=== PATIENT | female | born 1995 | race Caucasian/White ===

== ENCOUNTER 2017-05-15 09:00 | Inpatient (IN) | payer OTHER ==
[2017-05-15 09:47] LABS: PLATELET COUNT 261 10^3/uL (150-400)
--- NOTE | 2017-05-15 10:01 | CPEKG ---
Heart Rate: 77 RR Interval: 779 P-R Interval: 152 QRSD Interval: 80 QT Interval: 404 QTC Interval: 458 P Ho Ho Kus: 11 QRS Ho Ho Kus: -8 T Wave Ho Ho Kus: 15 EKG Severity - BORDERLINE ECG - EKG Impression: SINUS RHYTHM EKG Impression: LOW VOLTAGE THROUGHOUT Electronically Signed By: Juancho Alvarenga 15-May-2017 15:20:21
--- NOTE | 2017-05-15 10:03 | EDPHY ---
H & P Smoking Status: Current every day smoker Time Seen by Provider: 05/15/17 09:14 HPI/ROS: CHIEF COMPLAINT: Drug overdose HISTORY OF PRESENT ILLNESS: 22-year-old female presents to the emergency department after intentional drug overdose. Mother thinks that she took the medication around 7:00 a.m.. She admits to taking Escitalopram 10 mg up to 30 tablets and buspirone 10 mg possibly up to 60 tablets. The patient states that she just came back from [place] yesterday and broke up with her boyfriend. She feels suicidal. She continues to feel suicidal. She denies any other medications. She is prescribed Lyrica for her fibromyalgia. Last dose was yesterday. She denies chest pain or difficulty breathing. Denies abdominal pain. She does feel slightly nauseous although no vomiting. Denies auditory or visual hallucinations. She does have a known history of depression and bipolar and has been hospitalized for previous suicide attempts in the past. Denies history of substance abuse including alcohol. REVIEW OF SYSTEMS: Constitutional: No fever, no chills. Eyes: No double or blurry vision. ENT: No sore throat. Respiratory: No cough, no shortness of breath. Cardiac: No chest pain. Gastrointestinal: No abdominal pain, vomiting or diarrhea. Genitourinary: No dysuria. Musculoskeletal: No neck or back pain. Skin: No rashes. Neurological: No headache. (Maranda Joshi) Past Medical/Surgical History: Depression, bipolar, previous suicide attempts (Maranda Joshi M) Social History: Lives in [place] (Maranda Joshi M) Physical Exam: General Appearance: Lethargic, no distress. Eyes: Pupils equal and round. Extraocular motions are all intact. ENT: Mouth: Mucous membranes moist. Horizontal nystagmus noted bilaterally. Respiratory: No wheezing, rhonchi, or rales, lungs are clear to auscultation. Cardiovascular: Regular rate and rhythm. Gastrointestinal: Abdomen is soft and nontender, no masses, no rebound or guarding, bowel sounds normal. Neurological: Alert and oriented x 3, cranial nerves II through XII grossly intact Skin: Warm and dry, no rashes. Musculoskeletal: Nontender to palpate along the cervical, thoracic or lumbar spine. Neck is supple. Extremities: Full range of motion and no peripheral edema. Psychiatric: Patient is oriented X 3, there is no agitation. (Maranda Joshi) Constitutional: Initial Vital Signs Temperature (C) 36.3 C 05/15/17 09:07 Heart Rate 98 05/15/17 09:07 Respiratory Rate 16 05/15/17 09:07 Blood Pressure 112/90 H 05/15/17 09:07 O2 Sat (%) 95 05/15/17 09:07 O2 Delivery Mode Room Air Allergies/Adverse Reactions: acetaminophen [From Percocet] Allergy (Intermediate, Verified 05/15/17 18:16) Hives metronidazole Allergy (Intermediate, Verified 05/15/17 18:16) Vomiting oxycodone [From Percocet] Allergy (Intermediate, Verified 05/15/17 18:16) Hives Home Medications: Medication Instructions Recorded Ascorbate Calcium/Bioflavonoid 1 each PO DAILY 05/15/17 [Kelley-C 500 mg Tablet] Cholecalciferol Vit D3 [Vitamin D3 2,000 units PO DAILY 05/15/17 2000 units tab (OTC)] Cyanocobalamin/Folic AC/Vit B6 [B 1 each PO DAILY 05/15/17 Complex-Folic Acid Tablet] Escitalopram Oxalate [Lexapro] 10 mg PO DAILY 05/15/17 Herbals/Supplements -Info Only 1 ea PO DAILY 05/15/17 Metoclopramide Dose Unknown PO TID 05/15/17 Pregabalin [Lyrica 150mg (*)] 150 mg PO HS 05/15/17 Pregabalin [Lyrica 150mg (*)] 300 mg PO DAILY 05/15/17 lamoTRIgine [LamICTAL 100 MG (*)] 100 mg PO DAILY 05/15/17 Medical Decision Making - Diagnostics EKG Interpretation: EKG interpreted by me shows normal sinus rhythm with normal interval and axis. QRS is normal there is no significant ST elevation or depression. There is no arrhythmia. The rate is 77 (Juancho Alvarenga) ED Course/Re-evaluation: I did not see this patient while she was in the emergency department. However her care was discussed with PA while the patient was in the department. I agree with treatment plan and management (Juancho Alvarenga) I took over care of this patient at 5:00 p.m.. 7:00 p.m., the patient has been seen and evaluated by Behavioral Health. The patient will be admitted to [address] [place] [address] under the care of Dr. Moses. I have filled out the appropriate transfer paperwork. The patient's remaining emergency department course under my care has been uneventful. She was transferred in stable condition. (Ozzy Bruno) I spoke with [employer], case #[id number], and they recommended monitoring the patient for 6-8 hours. The patient was placed on a quality project manager. EKG was performed. The case was discussed with Dr. Juancho Alvarenga, secondary supervising physician, who did not directly evaluate the patient but agrees with treatment and plan. Care will be turned over to Dr. Ozzy Bruno at 6:00 p.m.. (Maranda Joshi) Differential Diagnosis: Depression including functional and major depression, situational depression, medication side effect, drugs and alcohol abuse. (Maranda Joshi) - Data Points Laboratory Results: Laboratory Results 05/15/17 09:40 05/15/17 09:40 Medications Given: Cholecalciferol (Vitamin D) 2,000 units PO DAILY BRIGID Stop: 11/12/17 08:59 Last Admin: 05/16/17 10:31 Dose: 2,000 units Cyproheptadine HCl (Periactin) 4 mg PO TID PRN PRN Reason: Anxiety or Nausea Stop: 11/12/17 15:59 Last Admin: 05/16/17 14:06 Dose: 4 mg Lamotrigine (Lamictal) 100 mg PO DAILY BRIGID Stop: 11/12/17 08:59 Last Admin: 05/16/17 10:31 Dose: 100 mg Miscellaneous Medication (Cyanocobalamin/Folic Ac/Vit B6 [B Complex-Folic Acid Tablet]) 1 each PO DAILY BRIGID Stop: 11/12/17 08:59 Last Admin: 05/16/17 10:40 Dose: Not Given Nicotine Polacrilex (Nicorette) 2 mg B Q1HR PRN PRN Reason: Nicotine withdrawal Stop: 11/11/17 19:59 Last Admin: 05/16/17 14:06 Dose: 2 mg Pregabalin (Lyrica) 150 mg PO HS BRIGID Stop: 11/11/17 20:59 Last Admin: 05/15/17 20:59 Dose: 150 mg Pregabalin (Lyrica) 300 mg PO DAILY BRIGID Stop: 11/12/17 08:59 Last Admin: 05/16/17 10:28 Dose: 300 mg Discontinued Medications Influenza Virus Vaccine Quadrival (Fluarix Quad [id number]) 0.5 ml IM .ONCE ONE Stop: 05/16/17 14:46 Last Admin: 05/16/17 14:51 Dose: 0.5 ml Lorazepam (Ativan) 0.5 - 1 mg PO Q6HRS PRN PRN Reason: Anxiety, Able to Take PO Stop: 11/11/17 19:59 Last Admin: 05/16/17 10:44 Dose: 0.5 mg Pneumococcal Polyvalent Vaccine (Pneumovax 23) 0.5 ml IM .ONCE ONE Stop: 05/16/17 14:44 Last Admin: 05/16/17 14:55 Dose: 0.5 ml Departure - Departure Disposition: [facility] IP Clinical Impression: Suicidal ideation Overdose Qualifiers: Encounter type: initial encounter Injury intent: intentional self-harm Qualified Code(s): T50.902A - Poisoning by unspecified drugs, medicaments and biological substances, intentional self-harm, initial encounter Condition: Good
[2017-05-15] MEDS ORDERED: LORazepam 0.5 MG TAB PO PRN (20:00)
[2017-05-15] MEDS ORDERED: MAGNESIUM HYDROXIDE 30 ML UDCUP PO PRN (20:00)
[2017-05-15] MEDS ORDERED: MAG HYDROX/AL HYDROX/SIMETH 30 ML UDCUP PO PRN (20:00)
[2017-05-15] MEDS ORDERED: IBUPROFEN 200 MG TAB PO PRN (20:01)
[2017-05-15] MEDS ORDERED: MELATONIN 3 MG TAB PO PRN (20:09)
[2017-05-15] MEDS: PREGABALIN 75 MG CAP PO SCH (20:59)
[2017-05-16] MEDS: PREGABALIN 75 MG CAP PO SCH ×2 (10:28→21:10)
[2017-05-16] MEDS: lamoTRIgine 100 MG TAB PO SCH (10:31)
[2017-05-16] MEDS: CHOLECALCIFEROL VIT D3 2,000 UNITS TAB/CAP PO SCH (10:31)
[2017-05-16] MEDS: FOLIC AC PO SCH (10:40)
[2017-05-16] MEDS: [UNRECOGNIZED DRUG - OTHER] PO SCH (10:40)
[2017-05-16] MEDS: VIT B6 PO SCH (10:40)
[2017-05-16] MEDS: CYANOCOBALAMIN PO SCH (10:40)
[2017-05-16] MEDS: NICOTINE POLACRILEX 2 MG GUM B PRN ×3 (12:57→17:57)
[2017-05-16] MEDS ORDERED: LORazepam 0.5 MG TAB PO PRN (13:40)
[2017-05-16] MEDS: CYPROHEPTADINE HCL 4 MG TAB PO PRN (14:06)
[2017-05-16] MEDS ORDERED: PNEUMOCOCCAL 0.5ML VACCINE VIAL IM ONE (14:43)
[2017-05-16] MEDS ORDERED: FLU VACC QS 2017-18 (3YR+)/PF 0.5 ML SYR (FLUARIX QUAD) IM ONE (14:45)
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
[2017-05-16] MEDS ORDERED: SODIUM CL NASAL 45 ML BTL EACHNARE PRN (17:16)
[2017-05-16] MEDS: FLUTICASONE NASAL 120 SPRAYS/16 GM MDI EACHNARE SCH (19:01)
[2017-05-16] MEDS: CEPACOL LOZENGE PO PRN (19:24)
--- NOTE | 2017-05-17 00:38 | BCON ---
[f rep st] CONSULTATION Corrected report CONSULTATION FOR MEDICAL EVALUATION DATE OF CONSULTATION: 05/15/2017 REASON FOR CONSULT: Medical evaluation for inpatient psychiatric unit. HISTORY OF PRESENT ILLNESS: The patient is a 22-year-old female who was admitted to the inpatient psychiatric unit yesterday after an intentional overdose of antidepressants. She denies any recent fever, vomiting, diarrhea. She has had mild cough, congestion, and postnasal drip for a few days and feels like it is getting worse. She denies taking any jmyh-xju-woweshl cold or cough medications. She does take several supplements regularly. She denies any shortness of breath, chest pain, vomiting, or diarrhea. Denies history of asthma. PAST MEDICAL HISTORY: Depression, endometriosis, tobacco use, fibromyalgia (Dr Sandra Yan in [place] prescribes Lyrica). Primary care provider, Dr. Shantanu Nichols, at [place]. PAST SURGICAL HISTORY: Hysterectomy in September of 2016 for endometriosis in [place] and patient reports that ovaries were not removed at the time of surgery. SOCIAL HISTORY: She lives in [place] with roommates. Her family lives in [place]. She smokes 4-5 cigarettes a day but has been using Nicorette gum since arrival, which she says is helpful. She denies any alcohol or drug use. FAMILY HISTORY: Depression and alcoholism on dad's side of the family. Maternal grandfather with prostate cancer. Maternal grandmother of an acute heart attack. MEDICATIONS: Please see reconciled medications in [employer], also regularly takes egnd-ayh-dikaiit B complex, [place], Kelley C, and D3 supplements. REVIEW OF SYSTEMS: Nonpsychiatric review of systems was completed and negative , except as noted above. OBJECTIVE: VITAL SIGNS: Temperature is 97.8, blood pressure 104/68, heart rate 89, respiratory rate of 14. She is 94% on room air. GENERAL: She is pleasant female with a flat affect. HEENT: Dilated pupils noted. EOMI. Conjunctivae anicteric with no hyperemia. Oral cavity and pharynx with posterior cobblestoning. No exudate. No lesions. Moist mucous membranes. Nares have clear rhinorrhea bilaterally. Sinuses are mildly tender to palpation, maxillary and frontal. NECK: Supple with shotty anterior cervical lymphadenopathy noted on the left greater than right. CARDIOVASCULAR: Regular rate and rhythm without murmur. LUNGS: Clear to auscultation bilaterally. No cough noted. ABDOMEN: Soft, normoactive bowel sounds, nontender, nondistended. No masses appreciated. SKIN: Warm and dry. No visible rashes were noted. : Deferred. BREASTS: Deferred. NEURO: non focal PSYCH: Flat affect. Fluent speech. Appropriate responses. LABS: White blood cell count 7.0, hemoglobin 15.5, hematocrit 44.9, platelet count of 261, normal differential. Sodium was 143, potassium 3.7, chloride 108 , carbon dioxide is 21, BUN of 8, creatinine 0.7, glucose of 77. Hemoglobin A1c was 5.1. Normal liver function tests. TSH 1.87. Urine toxicology shows no salicylates or Tylenol. Negative urine drug screen. Alcohol less than 10. ASSESSMENT: 1. Suicide attempt, depression. Will continue inpatient psychiatric care per psychiatric team. 2. History of endometriosis. Reports good resolution of her symptoms after hysterectomy. 3. Tobacco use. For now, will continue with gum, as she declines patches because of a reaction to the adhesives previously. Strongly encouraged complete cessation. 4. Upper respiratory infection. Does have mild acute sinusitis signs on exam today. Will start nasal saline and nasal steroid. I have ordered Cepacol as needed for throat pain. Should push fluids and can take ibuprofen as needed. If her symptoms are not gradually improving within the next several days, antibiotics might be appropriate at that time. Thank you for the opportunity to assist in her care. Please contact hospitalist service if future medical questions or concerns. /[id number]/MODL Arianna worktype, 05/20/17, rafael ZIEGLER
[2017-05-17] MEDS: [UNRECOGNIZED DRUG - OTHER] PO SCH (07:56)
[2017-05-17] MEDS: CYANOCOBALAMIN PO SCH (07:56)
[2017-05-17] MEDS: FOLIC AC PO SCH (07:56)
[2017-05-17] MEDS: VIT B6 PO SCH (07:56)
[2017-05-17] MEDS: PREGABALIN 75 MG CAP PO SCH ×2 (08:29→20:36)
[2017-05-17] MEDS: MULTIVITAMINS 1 EACH TAB PO SCH (08:29)
[2017-05-17] MEDS: CHOLECALCIFEROL VIT D3 2,000 UNITS TAB/CAP PO SCH (08:29)
[2017-05-17] MEDS: lamoTRIgine 100 MG TAB PO SCH (08:30)
[2017-05-17] MEDS: FLUTICASONE NASAL 120 SPRAYS/16 GM MDI EACHNARE SCH (08:30)
[2017-05-17] MEDS: NICOTINE POLACRILEX 2 MG GUM B PRN (08:46)
[2017-05-17] MEDS: NICOTINE 14 MG/24 HR PATCH TD SCH (12:17)
[2017-05-17] MEDS: CEPACOL LOZENGE PO PRN (12:17)
[2017-05-17] MEDS: OLANZapine DISINTEGR 5 MG TAB PO PRN (12:57)
[2017-05-17] MEDS ORDERED: NAPROXEN SODIUM 220 MG TAB PO PRN (12:58)
--- NOTE | 2017-05-17 14:03 | SOAPPROG ---
SOAP Progress Note Assessment/Plan: Assessment: Bipolar II, depressed with mixed features PTSD Borderline PD History of alcohol use disorder Serotonin Syndrome symptoms - recent overdose of buspirone and escitalopram Fibromyalgia Patient appears dysphoric and reports continued SI and hopelessness. Patient has racing thoughts and anxiety; has dilated pupils, mild tremor, nausea , fatigue. Plan: Short Term Certification - patient had erratic and impulsive behavior prior to admit Increase Lamictal 100mg QAM and 25mg QHS for bipolar depression. Discussed risk of Wood-Gilmer Syndrome Restart Prazosin 1mg QHS for PTSD Continue Olanzapine 5mg PRN racing thoughts Continue Cyproheptadine 4mg PRN anxiety or nausea Reduce Lyrica 150mg BID for fibromyalgia, due to excessive sleep Naproxen 440mg BID PRN arthritis Monitor mood, risk of self-harm Patient signed SHAD to obtain discharge summary from [facility] 2015 and [facility]. 05/17/17 14:15 Subjective: CC: "depressed, tired" Patient reports yesterday having mood instability with episodic hopelessness and thoughts of suicide, later anxiety and racing thoughts improved with PRN Olanzapine and PRN Ativan. Reports sleeping excessively 10-12 hours most of past month. Reports nightmares 2-3 nights a week. Reports continuing to feel hopeless and suicidal this afternoon. Reports in December 2015 vising female friend Pedro in [place]; Pedro committed suicide by gun shot wound in a van during the visit. Reports funding Pedro in the van and later having nightmares and flashbacks. In late 2015 close friend Moris of a fentanyl overdose. Reports feeling overwhelmed by those losses as well as losing her grandparents during childhood. Reports no reason to live. Reports racing thoughts most of past month. Reports feeling nausea and mildly confused with mild tremors. Reports benefit from Naproxen for arthritis. Objective: Vital Signs Temp Pulse Resp BP Pulse Ox 36.6 C 90 14 105/59 L 96 05/17/17 06:00 05/17/17 06:00 05/17/17 06:00 05/17/17 06:00 05/17/17 06:00 Spoke to mother Ivett Rascon [phone]. She verify patients history of trauma/loss. Patient has weeks of low energy and low activity, then intense mood swings with erratic behavior, including excessive spending and rapid speech. No history of grandiose delusions or violence toward others or reckless disregard for the safety of others. Reports patient has in past month had severe mood swings with unstable report of symptoms and 'up and down' behavior. Reports reports she can support patient, provide assistance in medication monitoring, and assist patient in attending follow up appointments. She is assisting and caring for patients pets. Patients biological father is diagnosed with Bipolar Disorder, but neither mother or patient are in contact with him. Patient is a very tired appearing WF with dilated pupils, pale, mildly sweaty with tremors tremor, mild ataxia. Speech soft few words. Mood 'depressed' affect dysphoric, restricted. Recurrent thoughts that live is not worth living and wanting to kill herself. Denies plan to harm self on unit. Thoughts briefly organized with poverty of detail. Denies HI or AH. No evident delusions. Insight limited. Judgment questionable. - Time Spent With Patient Time Spent With Patient: 30 minutes - Pending Discharge Pending Discharge Within 24 Hours: No Pending Discharge Within 48 Hours: No ICD10 Worksheet Patient Problems: Problems Problem Status Onset Fibromyalgia Acute Posttraumatic stress disorder Acute Borderline personality disorder Acute Bipolar 2 disorder Acute Overdose Acute Suicidal ideation Acute
[2017-05-17] MEDS: lamoTRIgine 25 MG TAB PO SCH (20:36)
[2017-05-17] MEDS ORDERED: PRAZOSIN HCL 1 MG CAP PO SCH (21:00)
[2017-05-18] MEDS: PREGABALIN 75 MG CAP PO SCH ×3 (08:15→19:56)
[2017-05-18] MEDS: CYPROHEPTADINE HCL 4 MG TAB PO PRN (08:15)
[2017-05-18] MEDS: MULTIVITAMINS 1 EACH TAB PO SCH (08:16)
[2017-05-18] MEDS: CHOLECALCIFEROL VIT D3 2,000 UNITS TAB/CAP PO SCH (08:16)
[2017-05-18] MEDS: NICOTINE 14 MG/24 HR PATCH TD SCH (08:16)
[2017-05-18] MEDS: OLANZapine DISINTEGR 5 MG TAB PO PRN (08:16)
[2017-05-18] MEDS: lamoTRIgine 100 MG TAB PO SCH (08:16)
[2017-05-18] MEDS: FLUTICASONE NASAL 120 SPRAYS/16 GM MDI EACHNARE SCH (08:16)
--- NOTE | 2017-05-18 09:08 | SOAPPROG ---
SOAP Progress Note Assessment/Plan: Assessment: Bipolar II, depressed with mixed features PTSD Borderline PD History of alcohol use disorder Serotonin Syndrome symptoms - recent overdose of buspirone and escitalopram Fibromyalgia Patient appears dysphoric and reports continued SI and hopelessness. Patient describes mixed hypomanic and depressive symptoms prior to admit and Borderline PD symptoms since age 15. Patient has racing thoughts and anxiety; has dilated pupils, mild twitching, fatigue. Plan: Short Term Certification due to recent impulsive behavior and impulsive severe overdose Continue Lamictal 100mg QAM and 25mg QHS for bipolar depression. Discussed risk of Wood-Gilmer Syndrome Discontinue Prazosin due to hypotension this AM Schedule Olanzapine 2.5mg BID for mixed episode Continue Cyproheptadine 4mg PRN anxiety or insomnia Continue Lyrica 150mg BID and Naproxen 440mg BID PRN fibromyalgia arthritis Monitor mood, risk of self-harm Education about PTSD, bipolar disorder, Borderline PD CBT - identifying strengths, supports, coping skills, positive thoughts about self/future Check AM CK and BMP 05/18/17 09:12 Subjective: CC: "Depressed" Patient reports yesterday having racing thoughts, agitation, severe anxiety, took PRN Zydis 5mg and slept 3 hours then felt better. Feels tired this AM. Had nightmares overnight. Reports feeling hopeless, that she cannot succeed with school or career, and having suicidal thoughts. Reports goal is to feel better to have a good relationship with mother, step-father, friends, and pets ( dog, cat, snake, lizard) and either go to school or get a job. Reports feeling overwhelmed, anxious, and having racing thoughts this AM. Reports prior to admit having severe mood instability - going 1-3 days with elevated mood, activity, and energy alternating with depressed mood and hypersomnia. Reports when having elevated mood/energy/activity 'it is like severe adrenaline, I'm frantic and can't calm down and get more upset easily. Reviewed Borderline PD, Bipolar DO, and PTSD handouts and endorses numerous symptoms of all three disorders. Objective: Vital Signs Temp Pulse Resp BP Pulse Ox 36.6 C 69 16 92/50 L 95 05/18/17 06:00 05/18/17 06:00 05/18/17 06:00 05/18/17 06:00 05/18/17 06:00 Tired WF. Occasional AIM/twitching. Pupils dilated but less than yesterday. Speech soft few words. Mood 'depressed' affect restricted, sad, anxious. Thoughts organized with minimal detail. Reports intense and frequent suicidal thoughts. Denies AH or paranoia or VH. Reports racing thoughts and anxiety. Insight limited. Judgment impaired. Staff report patient slept 3 hours after PRN Zyprexa 5mg yesterday but reporting reduced anxiety and racing thoughts. Slept 9 hours overnight. Appearing sad, withdrawn, tired on unit with continued suicidal ideation. - Time Spent With Patient Time Spent With Patient: 25 minutes - Pending Discharge Pending Discharge Within 24 Hours: No Pending Discharge Within 48 Hours: No ICD10 Worksheet Patient Problems: Problems Problem Status Onset Bipolar 2 disorder Acute Borderline personality disorder Acute Fibromyalgia Acute Overdose Acute Posttraumatic stress disorder Acute Suicidal ideation Acute
[2017-05-18] MEDS: OLANZapine 2.5 MG TAB PO SCH ×3 (10:55→19:54)
[2017-05-18] MEDS: NICOTINE POLACRILEX 2 MG GUM B PRN (11:50)
[2017-05-18] MEDS: B COMPLEX PO SCH (12:17)
[2017-05-18] MEDS: lamoTRIgine 25 MG TAB PO SCH (19:55)
[2017-05-19] MEDS: B COMPLEX PO SCH (08:17)
[2017-05-19] MEDS: NICOTINE 14 MG/24 HR PATCH TD SCH (08:17)
[2017-05-19] MEDS: MULTIVITAMINS 1 EACH TAB PO SCH (08:17)
[2017-05-19] MEDS: OLANZapine 2.5 MG TAB PO SCH ×2 (08:17→19:37)
[2017-05-19] MEDS: lamoTRIgine 100 MG TAB PO SCH (08:17)
[2017-05-19] MEDS: PREGABALIN 75 MG CAP PO SCH ×2 (08:17→19:37)
[2017-05-19] MEDS: FLUTICASONE NASAL 120 SPRAYS/16 GM MDI EACHNARE SCH (08:19)
[2017-05-19] MEDS: CHOLECALCIFEROL VIT D3 2,000 UNITS TAB/CAP PO SCH (08:21)
[2017-05-19 10:30] LABS: CREATINE KINASE 36 IU/L (0-156)
[2017-05-19] MEDS: NICOTINE POLACRILEX 2 MG GUM B PRN (12:45)
[2017-05-19] MEDS ORDERED: MAGNESIUM CITRATE 300 ML BOTTLE PO ONE (12:46)
--- NOTE | 2017-05-19 12:52 | SOAPPROG ---
SOAP Progress Note Assessment/Plan: Assessment: Bipolar II, depressed with mixed features PTSD Borderline PD History of alcohol use disorder Recent overdose of buspirone and escitalopram Fibromyalgia Patient appears more alert and more hopeful today with reduced racing thoughts and reduced anxiety. Patient has reduced serotonin syndrome symptoms but occasional muscle twitching. Patient reports continued suicidal thoughts (denies intent/plan) and is unable to identify any coping skills. Patient just started attending groups today. Plan: Short Term Certification due to recent impulsive behavior and impulsive severe overdose Continue Lamictal 100mg QAM and 25mg QHS for bipolar depression. Continue Olanzapine 2.5mg BID for mixed episode Continue Cyproheptadine 4mg PRN anxiety or insomnia Continue Lyrica 150mg BID and Naproxen 440mg BID PRN fibromyalgia arthritis Monitor mood, risk of self-harm, coping skills Education about PTSD, bipolar disorder, Borderline PD CBT - identifying strengths, supports, coping skills, positive thoughts about self/future Encouraged patient to attend groups and begin safety planning 05/19/17 12:52 Subjective: CC: "Better" Patient reports feeling 'better.' Unable to explain in what way, later reports feeling less tired and less 'groggy.' Reports goal is to feel better to attend IOP after discharge while living with mother. Reports intermediate goal of either working or going to school in [place] near her [employer] friends. Reports she is not confident in herself and fears that she will harm herself again but wants to feel better. Reports feeling significantly improved this AM and denies racing thoughts and reports reduction in agitation and anxiety. Reports taking 4 Ex-Lax tablets daily prior to admission. Reports no BM since Sunday 05/14, did take MOM this AM without benefit. Unable to explain coping skills to use if having thoughts of self-harm except 'take a nap.' Objective: Vital Signs Temp Pulse Resp BP Pulse Ox 36.6 C 68 15 102/68 95 05/19/17 06:00 05/19/17 06:00 05/19/17 06:00 05/19/17 06:00 05/19/17 06:00 Laboratory Results 05/19/17 05:40 Alert WF. Occasional twitching movements. Better eye contact. Affect restricted, brief smiling, appears anxious at times. Mood 'better' Thoughts briefly organized. Reports thoughts of and suicide but denies plan/ intent. Unable to name coping skills. Denies violent thoughts or paranoia. Insight limited. Judgment questionable. Patient received MOM for constipation without benefit. CK and BMP WNL Mother left message that she reviewed Borderline PD handout with patient last PM and both agree patient has symptoms and should attend IOP after discharge. Patient met with telecom analyst yesterday to discuss low carbohydrate diet. - Time Spent With Patient Time Spent With Patient: 30 minutes - Pending Discharge Pending Discharge Within 24 Hours: No Pending Discharge Within 48 Hours: No ICD10 Worksheet Patient Problems: Problems Problem Status Onset Constipation Acute Fibromyalgia Acute Posttraumatic stress disorder Acute Borderline personality disorder Acute Bipolar 2 disorder Acute Overdose Acute Suicidal ideation Acute
[2017-05-19] MEDS: SENNOSIDES 1 TAB PO SCH ×2 (14:11→19:36)
[2017-05-19] MEDS: lamoTRIgine 25 MG TAB PO SCH (19:37)
[2017-05-20] MEDS: PREGABALIN 75 MG CAP PO SCH ×2 (08:39→20:55)
[2017-05-20] MEDS: FLUTICASONE NASAL 120 SPRAYS/16 GM MDI EACHNARE SCH (08:39)
[2017-05-20] MEDS: NICOTINE 14 MG/24 HR PATCH TD SCH (08:39)
[2017-05-20] MEDS: SENNOSIDES 1 TAB PO SCH ×2 (08:39→20:55)
[2017-05-20] MEDS: lamoTRIgine 100 MG TAB PO SCH (08:39)
[2017-05-20] MEDS: MULTIVITAMINS 1 EACH TAB PO SCH (08:39)
[2017-05-20] MEDS: B COMPLEX PO SCH (08:39)
[2017-05-20] MEDS: CHOLECALCIFEROL VIT D3 2,000 UNITS TAB/CAP PO SCH (08:39)
[2017-05-20] MEDS: OLANZapine 2.5 MG TAB PO SCH ×2 (08:39→20:55)
[2017-05-20] MEDS: NICOTINE POLACRILEX 2 MG GUM B PRN ×2 (09:31→14:41)
--- NOTE | 2017-05-20 14:10 | SOAPPROG ---
SOAP Progress Note Assessment/Plan: Assessment: Bipolar II, depressed with mixed features PTSD Borderline PD History of alcohol use disorder Recent suicidal ideation and overdose of buspirone and escitalopram Serotonin Syndrome symptoms - resolved Fibromyalgia Patient has improved affect and hopefulness, some continued thoughts of self harm but reduced from previous. Plan: Short Term Certification due to recent impulsive behavior and impulsive severe overdose Continue Lamictal 100mg QAM and 25mg QHS for bipolar depression. Continue Olanzapine 2.5mg BID for mixed episode Continue Cyproheptadine 4mg PRN anxiety or insomnia Continue Lyrica 150mg BID and Naproxen 440mg BID PRN fibromyalgia arthritis Monitor mood, risk of self-harm, coping skills Possible discharge Tuesday05/23/17 if continuing to improve Patient was referred to [facility] IOP 05/20/17 14:16 Subjective: CC: "alright, anxious" Patient reports that she slept well. Reports episodic anxiety 'feeling nervous and unsettled.' Reports benefit from Olanzapine and wants to continue taking. Denies feelings sedated or slowed. Reports brief thoughts of self harm without intent/plan, less intense and less frequent than before. Denies violent thoughts or paranoia. Reports goal of feeling improved to start IOP. Plans to live with mother after discharge. Denies nightmares last night. Reports goal of getting a different job or starting a new school if feeling better in the future. Reports reduced racing thoughts and reduced agitation than previous. Objective: Vital Signs Temp Pulse Resp BP Pulse Ox 36.5 C 66 14 98/56 L 96 05/20/17 06:00 05/20/17 06:00 05/20/17 06:00 05/20/17 06:00 05/20/17 06:00 Laboratory Results 05/19/17 05:40 Alert WF. Speech soft RRR. Mood 'alright, anxious' Affect restricted. Thoughts briefly organized. Denies SI. Reports intermittent thoughts of self harm but denies plan or intent. Denies violent thoughts or paranoia. Denies AH. Insight fair. Judgment appropriate. Staff report patient slept 7 hours, isolative but able to attend some groups. - Time Spent With Patient Time Spent With Patient: 20 minutes - Pending Discharge Pending Discharge Within 24 Hours: No Pending Discharge Within 48 Hours: No ICD10 Worksheet Patient Problems: Problems Problem Status Onset Bipolar 2 disorder Acute Borderline personality disorder Acute Constipation Acute Fibromyalgia Acute Overdose Acute Posttraumatic stress disorder Acute Suicidal ideation Acute
[2017-05-20] MEDS: lamoTRIgine 25 MG TAB PO SCH (20:55)
[2017-05-21] MEDS: CHOLECALCIFEROL VIT D3 2,000 UNITS TAB/CAP PO SCH (08:08)
[2017-05-21] MEDS: lamoTRIgine 100 MG TAB PO SCH (08:09)
[2017-05-21] MEDS: OLANZapine 2.5 MG TAB PO SCH ×2 (08:09→20:44)
[2017-05-21] MEDS: MULTIVITAMINS 1 EACH TAB PO SCH (08:09)
[2017-05-21] MEDS: SENNOSIDES 1 TAB PO SCH ×2 (08:09→20:44)
[2017-05-21] MEDS: B COMPLEX PO SCH (08:09)
[2017-05-21] MEDS: PREGABALIN 75 MG CAP PO SCH ×2 (08:41→20:44)
[2017-05-21] MEDS: FLUTICASONE NASAL 120 SPRAYS/16 GM MDI EACHNARE SCH (08:42)
[2017-05-21] MEDS: NICOTINE 14 MG/24 HR PATCH TD SCH (08:42)
--- NOTE | 2017-05-21 15:30 | SOAPPROG ---
SOAP Progress Note Assessment/Plan: Assessment: Per Dr. Lama on 05/20/17 Assessment: Bipolar II, depressed with mixed features PTSD Borderline PD History of alcohol use disorder Recent suicidal ideation and overdose of buspirone and escitalopram Serotonin Syndrome symptoms - resolved Fibromyalgia Patient has improved affect and hopefulness, some continued thoughts of self harm but reduced from previous. Plan: Short Term Certification due to recent impulsive behavior and impulsive severe overdose Continue Lamictal 100mg QAM and 25mg QHS for bipolar depression. Continue Olanzapine 2.5mg BID for mixed episode Continue Cyproheptadine 4mg PRN anxiety or insomnia Continue Lyrica 150mg BID and Naproxen 440mg BID PRN fibromyalgia arthritis Monitor mood, risk of self-harm, coping skills Possible discharge Tuesday05/23/17 if continuing to improve Patient was referred to [facility] IOP 05/21/17 15:28 per staff, slept 9hr. enjoys art. has been maintaining with safe behaviors. On ev, pt was sitting on bed, readily engaging in interview. Good eye contact , cooperative, nml speech rate/vol. States she took OD b/c felt much stress about work and being on probation. mood "fine", affect appropriate to content of interview. Reports she does not have any wish to , and denies having any active or passive SI. Denies any thoughts to harm others. Denied any psychotic sxs, and thoughts were linear, reality-based and future-oriented. l Has not engaged in any self harm behaviors on unit. Finds stress relief with coloring in [employer] book, and attending art groups. Also reports having made plan to quit her work in [place], live with her parents for a while in [place], and would like to return to school in [facility]. States she continued with therapist and prescriber in [facility], commuting from [place], but will be closer to there once back with her parents. Consistently expressed interest in attending IOP, willing to commute to [place] for IOP program then cont f/u in [facility] for outpt. Feels med changes since admission have been fine, incl decr Lyrica. Feels decr stress in part also since deciding to quit her job and make new plans as noted above. States she is on PROBATION for DWAI through end of summer, "and I can't use my medical marijuana card" while on probation. Denies any med s/e. Denies any physical complaints. PLAN: d/c SP-1 no medication changes indicated at this time. plan d/c early in week to parents and with IOP f/u for DBT , and with f/u in [facility] where pt has been established Objective: Vital Signs Temp Pulse Resp BP Pulse Ox 36.4 C 81 16 103/66 97 05/21/17 06:00 05/21/17 06:00 05/21/17 06:00 05/21/17 06:00 05/21/17 06:00 Laboratory Results 05/19/17 05:40 - Time Spent With Patient Time Spent With Patient: 35min - Pending Discharge Pending Discharge Within 24 Hours: No Pending Discharge Within 48 Hours: No ICD10 Worksheet Patient Problems: Problems Problem Status Onset Bipolar 2 disorder Acute Borderline personality disorder Acute Constipation Acute Fibromyalgia Acute Overdose Acute Posttraumatic stress disorder Acute Suicidal ideation Acute
[2017-05-21] MEDS: CYPROHEPTADINE HCL 4 MG TAB PO PRN (16:16)
[2017-05-21] MEDS: lamoTRIgine 25 MG TAB PO SCH (20:45)
[2017-05-22] MEDS: MULTIVITAMINS 1 EACH TAB PO SCH (08:01)
[2017-05-22] MEDS: B COMPLEX PO SCH (08:01)
[2017-05-22] MEDS: PREGABALIN 75 MG CAP PO SCH ×2 (08:01→21:13)
[2017-05-22] MEDS: OLANZapine 2.5 MG TAB PO SCH ×2 (08:01→21:13)
[2017-05-22] MEDS: SENNOSIDES 1 TAB PO SCH ×2 (08:01→21:13)
[2017-05-22] MEDS: lamoTRIgine 100 MG TAB PO SCH (08:02)
[2017-05-22] MEDS: CHOLECALCIFEROL VIT D3 2,000 UNITS TAB/CAP PO SCH (08:02)
[2017-05-22] MEDS: CYPROHEPTADINE HCL 4 MG TAB PO PRN ×2 (08:15→13:41)
[2017-05-22] MEDS: FLUTICASONE NASAL 120 SPRAYS/16 GM MDI EACHNARE SCH (08:17)
[2017-05-22] MEDS: NICOTINE 14 MG/24 HR PATCH TD SCH (08:47)
[2017-05-22] MEDS: lamoTRIgine 25 MG TAB PO SCH (21:13)
--- NOTE | 2017-05-23 01:06 | SOAPPROG ---
SOAP Progress Note Assessment/Plan: Assessment: essment: Per Dr. Lama on 05/20/17 Assessment: Bipolar II, depressed with mixed features PTSD Borderline PD History of alcohol use disorder Recent suicidal ideation and overdose of buspirone and escitalopram Serotonin Syndrome symptoms - resolved Fibromyalgia Patient has improved affect and hopefulness, some continued thoughts of self harm but reduced from previous. Plan: Short Term Certification due to recent impulsive behavior and impulsive severe overdose Continue Lamictal 100mg QAM and 25mg QHS for bipolar depression. Continue Olanzapine 2.5mg BID for mixed episode Continue Cyproheptadine 4mg PRN anxiety or insomnia Continue Lyrica 150mg BID and Naproxen 440mg BID PRN fibromyalgia arthritis Monitor mood, risk of self-harm, coping skills Possible discharge Tuesday05/23/17 if continuing to improve Patient was referred to [facility] IOP 05/21/17 15:28 per staff, slept 9hr. enjoys art. has been maintaining with safe behaviors. On ev, pt was sitting on bed, readily engaging in interview. Good eye contact , cooperative, nml speech rate/vol. States she took OD b/c felt much stress about work and being on probation. mood "fine", affect appropriate to content of interview. Reports she does not have any wish to , and denies having any active or passive SI. Denies any thoughts to harm others. Denied any psychotic sxs, and thoughts were linear, reality-based and future-oriented. l Has not engaged in any self harm behaviors on unit. Finds stress relief with coloring in [employer] book, and attending art groups. Also reports having made plan to quit her work in [place], live with her parents for a while in [place], and would like to return to school in [facility]. States she continued with therapist and prescriber in [facility], commuting from [place], but will be closer to there once back with her parents. Consistently expressed interest in attending [facility], willing to commute to [place] for IOP program then cont f/u in [facility] for outpt. Feels med changes since admission have been fine, incl decr Lyrica. Feels decr stress in part also since deciding to quit her job and make new plans as noted above. States she is on PROBATION for DWAI through end of summer, "and I can't use my medical marijuana card" while on probation. Denies any med s/e. Denies any physical complaints. PLAN: d/c SP-1 no medication changes indicated at this time. plan d/c early in week to parents and with [facility] f/u for DBT , and with f/u in [facility] where pt has been established 05/22/17 17:19 per staff, pt slept 8hr. Has been off SP-1 with no reports of SI or impulse to harm self. Staff report pt requested prn yesterday evening for anxiety, which she found helpful (cyproheptadine) after had forgotten this was avail to her. On eval earlier today, pt stated same regarding her anxiety, has had incr anxiety with upcoming discharge and anxiety about leaving. Reports CC gave her reading material about DBT which she reports having already read last night and looking forward to f/u in an IOP program after d/c. with reported + effect to prn cyproheptadine which she requested again this AM, and noted again this afternoon She consistently reported her plan being to quit her job after d/c, and l/w parents, commute to [facility] in [place], and f/u with therapist and her prescriber in [facility], and enroll in school in [facility]. States her lease is up in July in [place]. Feels parents have been very supportive of her. Sitting in dayroom , coloring [employer], casually dressed, calm, cooperative, good EC, nml PMA, mood "good", "not anxious anymore", thoughts linear/goal- directed and have been consistently future-oriented through weekend. Denies any SI plan/intent/thoughts. Denied any thoughts to harm others. No evid of psychosis, denied ah/vh. i/j seem improved. cognition conversationally intact. PLAN: -Cont current meds. reports some anxiety (with helpful prns) related to anticipating d/c -Likely d/c tomorrow or early in week to l/w parents and with IOP f/u for DBT, CC provided with different IOP programs offered in community. F/u with MH f/u in [facility] where pt reports she is established and wants to continue. -plans continued f/u with probation requirements after d/c -ensure safety plan completed and f/u appts in place prior to d/c, consider limiting # of pills Rxd at d/c due to her OD. currently denies any thoughts of self-harm or impulses, and expresses future-oriented thinking incl desire to learn new coping strategies/skills for her BPD Objective: Vital Signs Temp Pulse Resp BP Pulse Ox 36.4 C 81 16 96/65 L 94 05/22/17 06:00 05/22/17 06:00 05/22/17 06:00 05/22/17 06:00 05/22/17 06:00 Laboratory Results 05/19/17 05:40 - Time Spent With Patient Time Spent With Patient: 20min - Pending Discharge Pending Discharge Within 24 Hours: Yes Pending Discharge Within 48 Hours: No Pending Discharge Date: 05/23/17 Pending Discharge Time: 11:00 ICD10 Worksheet Patient Problems: Problems Problem Status Onset Bipolar 2 disorder Acute Borderline personality disorder Acute Constipation Acute Fibromyalgia Acute Overdose Acute Posttraumatic stress disorder Acute Suicidal ideation Acute
[2017-05-23 06:51] VITALS: BP 107/52; PULSE 68; RESP 12; TEMP 97.5; O2SAT 95
[2017-05-23] MEDS: FLUTICASONE NASAL 120 SPRAYS/16 GM MDI EACHNARE SCH (08:37)
[2017-05-23] MEDS: CHOLECALCIFEROL VIT D3 2,000 UNITS TAB/CAP PO SCH (08:37)
[2017-05-23] MEDS: B COMPLEX PO SCH (08:38)
[2017-05-23] MEDS: OLANZapine 2.5 MG TAB PO SCH (08:38)
[2017-05-23] MEDS: NICOTINE 14 MG/24 HR PATCH TD SCH (08:38)
[2017-05-23] MEDS: MULTIVITAMINS 1 EACH TAB PO SCH (08:38)
[2017-05-23] MEDS: lamoTRIgine 100 MG TAB PO SCH (08:38)
[2017-05-23] MEDS: CYPROHEPTADINE HCL 4 MG TAB PO PRN (08:39)
[2017-05-23] MEDS: SENNOSIDES 1 TAB PO SCH (08:39)
[2017-05-23] MEDS: PREGABALIN 75 MG CAP PO SCH (08:39)
--- NOTE | 2017-05-23 14:56 | BDS ---
[f rep st] BEHAVIORAL HEALTH DISCHARGE SUMMARY IDENTIFICATION: This is a 22-year-old single white female who lives with several roommates. She also has a dog, a cat, a lizard, and a snake. 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 Her mother and her stepfather live in the area. REASON FOR ADMISSION: Please see psychiatric evaluation from May 16, 2017. The patient overdosed on at least 30 tablets of Lexapro and BuSpar and was admitted to the inpatient unit on an M1 hold. HOSPITAL COURSE: The patient on the unit initially had symptoms of serotonin syndrome. She had nausea, severe fatigue, muscle twitches, dilated pupils and appeared lethargic and mildly confused. She was placed on a short-term certification for being a danger to herself. The patient and her mother, who is a good historian, as well as her outpatient psychiatrist, Dr. Bentley Smith in [place], reported that the patient had suffered through numerous traumas. Apparently, at a young age, her biological father and her mother when she was 3. Apparently, her biological father has bipolar disorder. She then had a stepfather who tragically and unexpectedly in a tow truck accident when the patient was 10. As an adult, the patient, in 2015, suffered the loss of 2 friends. One friend of a fentanyl overdose. The other friend was in [place]. The patient was visiting her and the friend committed suicide via gunshot wound in a van and the patient found her. The patient has had symptoms of depression since early adolescence. She also has a history of hypomania with increased goal-directed activity, elevated energy, reduced sleep, impulsive spending, and brief agitation. This has been episodic for several years. The patient endorsed history of posttraumatic stress disorder symptoms including hypervigilance, startle, fear of impending doom, dissociation, and intrusive thoughts of finding her friend of a self- inflicted gunshot wound or intrusive memories of being told that her stepfather or her friend had suddenly. She has a history of difficulty with identity , having intense and unstable relationships with peers, and difficulty managing intense emotions for several years consistent with a diagnosis of Borderline Personality Disorder. The patient had been taking Lamictal 100 mg, along with Lexapro and BuSpar prior to admission. Because the patient overdosed on BuSpar and Lexapro and appeared to have serotonin syndrome symptoms, these medications were discontinued. The patient had low blood pressure after taking Prazosin for one bedtime dose for nightmares and this medication was then discontinued. The patient gave a history of having a mixed episode with depression alternating with severe racing thoughts and insomnia prior to admission. The patient was started on low-dose olanzapine to counteract the serotonin syndrome and to treat a mixed episode. She eventually took olanzapine 2.5 mg by mouth twice a day. She was given cyproheptadine 4mg p.r.n. for anxiety as well. The patient' s Lamictal was increased from 100 mg daily to 125 mg a day. The patient was warned about the risk of Lamictal causing Rose-Gilmer syndrome. She was also given information about the risks of olanzapine causing weight gain, diabetes, hyperlipidemia, and tardive dyskinesia. She was counseled to eat a low carbohydrate diet and walk or exercise 30 minutes daily. She was also given information about olanzapine and cyproheptadine causing sedation. The patient had a history of a hysterectomy for endometriosis. She was on Lyrica from her support teacher for fibromyalgia. She was taking 450 mg total daily in divided dosing. The patient was very somnolent and slept a lot, so this was reduced to 150 mg twice a day. The patient had constipation. She reported taking up to 4 tablets of Ex-Lax daily for constipation prior to admission. She eventually got milk of magnesia and magnesium citrate to treat her constipation and was restarted on Senokot twice a day. The patient's mother in the area is supportive and visited the patient several times and was involved with her discharge planning. The patient, on the unit, reported improvements in energy as the overdose wore off and her serotonin syndrome symptoms dissipated and her Lyrica dose was reduced. She reported the olanzapine reduced racing thoughts and improved mood. She reported reduced intensity of sadness and anxiety. The patient was receptive to discussion about symptoms of both posttraumatic stress disorder and borderline personality disorder. The patient was agreeable for referral to intensive outpatient program for dialectic behavior therapy and further individual and group counseling for trauma recovery. The patient's outpatient psychiatrist, Dr. Smith, agreed with this plan. On the unit, the patient was initially sleeping a lot, isolative to her room. Throughout the hospitalization, she became more energetic, more hopeful, more interactive with other patients and able to attend groups. She had a marked improvement in affect with better eye contact, appearing less dysphoric, less anxious and less hopeless. She became more future oriented and talked about wanting to live back with her mother and step-father in the short term then possibly restarting school or getting a different job. The patient reports chronic thoughts of self-harm such as cutting or overdosing for many years. She reported the intensity and frequency these thoughts declined dramatically during the course of the hospitalization. She was able to complete a safety plan of identifying coping skills to use to manage intense emotions or negative thoughts or self-destructive thoughts. During the course of the hospitalization, the patient was compliant with medication, did not require restraints or seclusion, and did not engage in any violent or self- injurious behavior. CONDITION ON DISCHARGE: She is an alert white female in no acute distress, is pleasant and cooperative. She has good eye contact. Her speech is regular rate and rhythm. Her thoughts are organized. She denies any thoughts to hurt herself or others. She denies hallucinations or paranoia. She reports some anxiety, worrying about the future. She reports this is at a manageable level. She has fair insight and appropriate judgment. CONSULTS: The patient was seen by the hospitalist, Dr. Min, on May 16, 2017, for baseline physical exam. She had an electrocardiogram on May 15 in the Emergency Department. This showed heart rate 77, QTc interval 458 milliseconds, borderline ECG with normal sinus rhythm. PROCEDURES: None. LABS PENDING: None. LAB RESULTS: White blood cell count 7.0, hemoglobin 15.5, platelet count 261. Sodium 143, potassium 4.0, creatinine 0.9, glucose 73. Hemoglobin A1c 5.1. Calcium 8.9. Total bilirubin 0.7, AST 25, ALT 37, alkaline phosphatase 66, creatine kinase 36, albumin 4.1. Triglycerides 97, LDL 103, HDL 74. TSH 1.8. Serum beta HCG was negative. Urine drug screen was negative. Alcohol level was negative. Serum acetaminophen and serum salicylates were negative. Nicotine use disorder screening. The patient is a daily smoker was given transdermal patch 14 mg daily and counseled about the dangers of smoking. Alcohol use disorder screening. Patient denied regular use of alcohol. Metabolic screening. The patient had baseline hemoglobin A1c and lipid panel that were normal. She was counseled about low sugar diet and exercise and the risk of Olanzapine causing metabolic syndrome. ALLERGIES: she has a history of a rash and nausea from Metrondiazole and itching from Percocet. ADVANCED DIRECTIVES: Patient declined to have an advance directive. Her next of kin is her mother, Ivett Henao, phone number [phone]. DISCHARGE DIAGNOSES: 1. Bipolar disorder type 2, most recent episode depressed with mixed features. 2. Posttraumatic stress disorder. 3. Borderline personality disorder. 4. Fibromyalgia. 5. History of hysterectomy. 6. Suicidal ideation with overdose on escitalopram and buspirone 7. Serotonin Syndrome - resolved DISCHARGE MEDICATIONS: Cyproheptadine 4 mg by mouth 3 times a day p.r.n. for anxiety or insomnia, Lamictal 25 mg by mouth at bedtime, Lamictal 100 mg by mouth daily, olanzapine 5 mg by mouth at bedtime, Lyrica 150 mg by mouth twice a day, Senokot 1 mg by mouth twice a day. She also takes Naproxen 440mg BID PRN arthritis pain. The patient was given prescriptions for cyproheptadine, Lamictal and olanzapine for one month. These were prescribed as a bubble pack. There was a request that the patient's mother and stepfather monitor the patient's medication compliance and lock the patient's medications in a pillbox to prevent impulsive overdose. She was given a 10 day bridge prescription of Lyrica. Patient was counseled to split the Olanzapine 5mg tablet to make 2.5mg PO BID if excessively sedated by Olanzapine 5mg at bedtime. She was counseled to have her psychiatrist or primary care provider recheck her glucose and lipid panel in one month. DISPOSITION: The patient is leaving the unit with her mother and her stepfather. She will temporarily stay with her mother, and her mother will assist her in attending the intensive outpatient program at [facility] 3 days a week and monitor her medication compliance. FOLLOWUP APPOINTMENTS: Besides a referral to the [facility], the patient sees Dr. Bentley Smith in [facility] for psychiatric medication management, and has an individual therapist as well. Please see the child care leader's discharge plan for those appointments. LEGAL STATUS: The patient was admitted on M1 hold. She was placed on short- term certification as she appeared lethargic, depressed, hopeless and suicidal and had a history of impulsive behavior. This will be terminated upon discharge as the patient has improved insight, accepts the need for continued treatment, and appears stable for a lower level of care. /[id number]/MODL KARLIE
== END 2017-05-23 12:32 | disposition home or self-care (01) | DRG 918 ==
LOC: BBEH 19:35
PROVIDERS: ADMIT Psychiatry & Neurology Psychiatry
DX: T40.2X2A Poisoning by other opioids, intentional self-harm, initial encounter (principal); T43.592A Poisoning by other antipsychotics and neuroleptics, intentional self-harm, initial encounter; F31.81 Bipolar II disorder; F43.10 Post-traumatic stress disorder, unspecified; F60.3 Borderline personality disorder; Z91.5 Personal history of self-harm; M79.7 Fibromyalgia; F17.210 Nicotine dependence, cigarettes, uncomplicated; J06.9 Acute upper respiratory infection, unspecified; Z81.8 Family history of other mental and behavioral disorders; Z90.710 Acquired absence of both cervix and uterus; Z23 Encounter for immunization
CPT/HCPCS: 80305; G0008; G0009; G0480